=== PATIENT | female | born 1965 | race African-American/Black ===

== ENCOUNTER 2017-01-19 09:13 | Emergency (ER) | payer MEDICARE, OTHER ==
[~2017-01-19] VITALS: Ht 175.3 cm; Wt 103.0 kg
[~2017-01-19 09:13] MED LIST: DEPRESSION MED PO; ERYT.5%O RIGHT EYE; GLUC1000 PO; LISI40TA PO; RANI150T PO; ROSU20 PO; STOO100C PO; [UNRECOGNIZED DRUG - CODE]
[2017-01-19 09:16] VITALS: BP 170/77; PULSE 68; RESP 24; TEMP 98.6; O2SAT 99
--- NOTE | 2017-01-19 09:24 | PD ---
HPI Chief Complaint: GI Complaint Time Seen by Provider: 09:24 Travel History International Travel<30 days: No Contact w/Intl Traveler<30days: No Traveled to known affect area: No History of Present Illness HPI 51-year-old female came to the emergency room with history of severe abdominal pain. Patient says she had a colonoscopy done yesterday were polyp was resected but everything else was fine. She was fine when she was discharged. said she ate ribs and other [employer] food for her lunch as well as dinner and at 1:45 AM started having severe abdominal pain. She went to [facility] emergency room where they did blood test and CAT scan and eventually the patient was discharged home. However patient comes back because the pain is still there. Patient wears a pain pump from which she gets fentanyl for her chronic pain. Vital signs are stable. Most of the history is obtained by the since patient just lays and is writhing in pain. She points to her entire abdomen when asked the location and says it's 10 out of 10. No known aggravating or relieving factors. Pain is sustained. She has been vomiting as per the . [facility] Past Medical History Narrative Medical List of her past medical, surgical, social and family history as reviewed from the nursing note. Arthritis: Yes Asthma: Yes Anxiety: Yes Depression: Yes High Cholesterol: Yes Diabetes: Yes Diminished Hearing: No Headaches: Yes Hypertension: Yes Musculoskeletal: Yes (SEVERAL ORTHO SURGERIES SINCE 1983 FROM A HEAD ON COLLISION) Immunizations Current: Yes Menopausal: No : 2 Para: 2 Miscarriage: 0 : 0 Past Surgical History Body Medical Devices: IMPLANTED DILAIDID PUMP Section: Yes (X2) Other Surgery: Yes (RT KNEE MENISCUS SURGERY NOV 2006/DILAUDID PUMP INSERTION) Social History Alcohol Use: No Tobacco Use: No Substance Use: No Allergies-Medications (Allergen,Severity, Reaction): Coded Allergies: adhesive (Unverified Allergy, Severe, BLISTERS, 01/19/17) baclofen (Unverified Allergy, Severe, HIVES, 01/19/17) bupropion (Unverified Allergy, Severe, HIVES, 01/19/17) cat dander (Unverified Allergy, Severe, 01/19/17) diatrizoate meglumine (Unverified Allergy, Severe, 01/19/17) dog dander (Unverified Allergy, Severe, 01/19/17) gadobenic acid (Unverified Allergy, Severe, 01/19/17) gadodiamide (Unverified Allergy, Severe, 01/19/17) gadoteridol (Unverified Allergy, Severe, 01/19/17) iodixanol (Unverified Allergy, Severe, 01/19/17) iohexol (Unverified Allergy, Severe, 01/19/17) latex (Unverified Allergy, Severe, RASH, YEAST INFECTION, 01/19/17) morphine (Unverified Allergy, Severe, HIVES, 01/19/17) codeine (Unverified Allergy, Intermediate, Hives, 01/19/17) hydromorphone (Unverified Adverse Reaction, Severe, DIARRHEA, NAUSEA, VOMITING, 01/19/17) tramadol (Unverified Adverse Reaction, Severe, AMS, 01/19/17) Uncoded Allergies: DYE (Adverse Reaction, Severe, YEAST INFECTION, 07/30/11) Comments List of her allergies reviewed from the nursing note. Reported Meds & Prescriptions Reported Meds & Active Scripts Active Zofran Odt (Ondansetron Odt) 4 Mg Tab 4 Mg SL Q6HR PRN Reported Rosuvastatin (Rosuvastatin Calcium) 20 Mg Tab 20 Mg PO DAILY Metformin (Metformin HCl) 1,000 Mg Tab 1,000 Mg PO BIDPC With meals Lisinopril 40 Mg Tab 40 Mg PO DAILY Docusate Sodium 100 Mg Cap 100 Mg PO TID Fentanyl 1,000 Mcg/20 ml Vial (Fentanyl Citrate/Pf) 50 Mcg/Ml Vial 324.9 Mcg SQ DAILY [Depression Med] 1 Tab PO DAILY Narrative Medication List of her home medications reviewed from the nursing note. Review of Systems Except as stated in HPI: all other systems reviewed are Neg Physical Exam Narrative GENERAL: Awake, alert, obese, significant distress SKIN: Focused skin assessment warm/dry. HEAD: Atraumatic. Normocephalic. EYES: Pupils equal and round. No scleral icterus. No injection or drainage. ENT: No nasal bleeding or discharge. Mucous membranes pink and moist. NECK: Trachea midline. No JVD. CARDIOVASCULAR: Regular rate and rhythm. No murmur appreciated. RESPIRATORY: No accessory muscle use. Clear to auscultation. Breath sounds equal bilaterally. GASTROINTESTINAL: Abdomen is tense and voluntary guarding, bowel sounds present. Hepatic and splenic margins not palpable. MUSCULOSKELETAL: No obvious deformities. No clubbing. No cyanosis. No edema. NEUROLOGICAL: Awake and alert. No obvious cranial nerve deficits. Motor grossly within normal limits. Normal speech. PSYCHIATRIC: Appropriate mood and affect; insight and judgment normal. Data Data Last Documented VS Vital Signs Date Time Temp Pulse Resp B/P (MAP) Pulse Ox O2 Delivery O2 Flow Rate FiO2 01/19/17 12:50 01/19/17 09:56 96 Room Air 01/19/17 09:16 98.6 68 24 Orders Orders Complete Blood Count With Diff (01/19/17 09:33) Comprehensive Metabolic Panel (01/19/17 09:33) Iv Access Insert/Monitor (01/19/17 09:33) Ecg Monitoring (01/19/17 09:33) Oximetry (01/19/17 09:33) Abdomen, Upright Only (01/19/17 09:33) Ondansetron Inj (Zofran Inj) (01/19/17 09:45) Ketorolac Inj (Toradol Inj) (01/19/17 10:45) Labs Laboratory Tests Test 01/19/17 09:45 White Blood Count 10.1 TH/MM3 Red Blood Count 5.19 MIL/MM3 Hemoglobin 14.6 GM/DL Hematocrit 45.6 % Mean Corpuscular Volume 87.8 FL Mean Corpuscular Hemoglobin 28.1 PG Mean Corpuscular Hemoglobin Concent 32.0 % Red Cell Distribution Width 13.7 % Platelet Count 234 TH/MM3 Mean Platelet Volume 10.0 FL Neutrophils (%) (Auto) 86.5 % Lymphocytes (%) (Auto) 10.7 % Monocytes (%) (Auto) 2.6 % Eosinophils (%) (Auto) 0.0 % Basophils (%) (Auto) 0.2 % Neutrophils # (Auto) 8.7 TH/MM3 Lymphocytes # (Auto) 1.1 TH/MM3 Monocytes # (Auto) 0.3 TH/MM3 Eosinophils # (Auto) 0.0 TH/MM3 Basophils # (Auto) 0.0 TH/MM3 CBC Comment DIFF FINAL Differential Comment Blood Urea Nitrogen 8 MG/DL Creatinine 0.83 MG/DL Random Glucose 162 MG/DL Total Protein 8.0 GM/DL Albumin 3.9 GM/DL Calcium Level 9.2 MG/DL Alkaline Phosphatase 82 U/L Aspartate Amino Transf (AST/SGOT) 20 U/L Alanine Aminotransferase (ALT/SGPT) 43 U/L Total Bilirubin 0.8 MG/DL Sodium Level 142 MEQ/L Potassium Level 3.4 MEQ/L Chloride Level 110 MEQ/L Carbon Dioxide Level 20.9 MEQ/L Anion Gap 11 MEQ/L Estimat Glomerular Filtration Rate 87 ML/MIN MDM Medical Decision Making Medical Screen Exam Complete: Yes Emergency Medical Condition: Yes Medical Record Reviewed: Yes Differential Diagnosis Chronic abdominal pain, perforation Narrative Course 11:28 AM upright chest x-ray was negative for free air. Blood test results of back and within acceptable limits. [facility] was called and asked to fax the report of the CAT scan and blood test that was done earlier from the emergency room but I have not received those faxes yet. I discussed the case with on-call GI specialist Dr. Davila and as per him if tests are negative he does not have any further input however he was notified about the case nonetheless given the fact that patient came in less than 24 hours after post procedure. At this point I'm comfortable discharging her home. She was given IM Zofran and Toradol. Procedures EKG Prior to Arrival: No Diagnosis Primary Impression: Abdominal pain Qualified Codes: R10.84 - Generalized abdominal pain Additional Impression: Status post colonoscopy with polypectomy Referrals: Eden Rey MD Additional Instructions: Please return to the ER if the condition worsens. Please follow-up with your GI specialist. Take clear liquid diet for the next 24-48 hours Med/Other Pt SpecificInfo: Prescription(s) given, No Change to Meds Scripts Ondansetron Odt (Zofran Odt) 4 Mg Tab 4 MG SL Q6HR Y for Nausea/Vomiting, #20 TAB 0 Refills Prov: Halima Polk MD 01/19/17 Disposition: 01 DISCHARGE HOME Condition: Stable Halima Polk MD Jan 19, 2017 09:24
[2017-01-19] MEDS ORDERED: FENT50VI SQ (09:30)
[2017-01-19] MEDS ORDERED: METF1000 PO (09:32)
[2017-01-19] MEDS ORDERED: ROSU1TAB8 PO (09:32)
[2017-01-19] MEDS ORDERED: DOCU100C PO (09:32)
[2017-01-19] MEDS ORDERED: LISI40TA PO (09:32)
[2017-01-19] MEDS ORDERED: ONDANSETRON HCL 4 MG/2 ML VIAL IM ONE (09:45)
[2017-01-19 09:56] VITALS: O2SAT 96
[2017-01-19 10:15] LABS: AUTOMATED NEUTROPHIL # 8.7 TH/MM3 (1.8-7.7); BASOPHIL % 0.2 % (0.0-2.0); HEMATOCRIT 45.6 % (35.0-46.0); HEMO FLAGS DIFF FINAL; LYMPH % 10.7 % (9.0-44.0); LYMPHOCYTE # 1.1 TH/MM3 (1.0-4.8); MEAN CELL VOLUME 87.8 FL (80.0-100.0); MEAN CORPUSCULAR HEMOGLOBIN 28.1 PG (27.0-34.0); MONO % 2.6 % (0.0-8.0); NEUT % 86.5 % (16.0-70.0); PLATELET COUNT 234 TH/MM3 (150-450); RED BLOOD COUNT 5.19 MIL/MM3 (4.00-5.30); RED CELL DISTRIBUTION WIDTH 13.7 % (11.6-17.2); WHITE BLOOD COUNT 10.1 TH/MM3 (4.0-11.0)
--- NOTE | 2017-01-19 10:30 | RADRPT ---
EXAM DATE/TIME: 01/19/2017 10:23 [facility] COMPARISON: No previous studies available for comparison. INDICATIONS : Post colonoscopy yesterday, severe upper abdomen pains with vomiting. MEDICAL HISTORY : Hypertension. SURGICAL HISTORY : Colonoscopy ENCOUNTER: Initial ACUITY: 2 days PAIN SCORE: 10/10 LOCATION: Bilateral upper abdomen. FINDINGS: Single upright abdomen demonstrates a normal-appearing bowel gas pattern. The lung bases are clear. T he visualized bony structures are grossly intact. CONCLUSION: 1. No free intraperitoneal air identified. Delvin Lujan MD on January 19, 2017 at 10:28 Board Certified Radiologist. This report was verified electronically.
[2017-01-19 10:44] LABS: ALT (GPT) 43 U/L (10-53); ANION GAP 11 MEQ/L (5-15); AST (GOT) 20 U/L (15-37); BICARBONATE 20.9 MEQ/L (21.0-32.0); BLOOD UREA NITROGEN 8 MG/DL (7-18); CHLORIDE 110 MEQ/L (98-107); GLOMERULAR FILTRATION RATE 87 ML/MIN (>89); POTASSIUM 3.4 MEQ/L (3.5-5.1); SODIUM (NA) 142 MEQ/L (136-145)
[2017-01-19] MEDS ORDERED: KETOROLAC TROMETHAMINE 60 MG/2 ML (IM) VIAL IM ONE (10:45)
[2017-01-19 10:46] LABS: ALKALINE PHOSPHATASE 82 U/L (45-117); TOTAL BILIRUBIN ADULT 0.8 MG/DL (0.2-1.0)
--- NOTE | 2017-01-19 10:54 | PD.CONS ---
HPI History of Present Illness This is a 51 year old female who presented to the emergency room for evaluation of nausea/vomiting and abdominal pain. She has a family history of colon cancer in son at age 30 and underwent screening colonoscopy (01/18/17) sessile polyp ranging between 3-5 mm in size was found in the sigmoid colon, biopsy was performed using cold forceps, retroflex views revealed internal grade 2 hemorrhoids, digital rectal exam was performed and revealed medium external hemorrhoids. Pathology pending. She was feeling well after the procedure, but was suddenly awakened around 3am with severe epigastric pain, described as a constant dull ache. Shortly after, she started having chills, nausea, vomiting , with green bilious material. She denies any heartburn or reflux. She has not had a fever. She reports that she has frequent belching. She reports that she has not had a bowel movement since her procedure. She is bloated, but states she is not passing flatus. She also complains of numbness in bilateral arms and legs. (Shannon Alfredo) PFSH Past Medical History Adjustment disorder with depressed mood Arthritis Asthma Diabetes type 2 GERD Hypertension Hyperlipidemia History of gastritis and esophagitis Migraine headaches Past Surgical History Arthrodesis cervical Colonoscopy EGD Lumbar laminectomy Pain pump placement Repair of knee ligament Skin debridement left knee (Shannon Alfredo) Coded Allergies: adhesive (Unverified Allergy, Severe, BLISTERS, 01/19/17) baclofen (Unverified Allergy, Severe, HIVES, 01/19/17) bupropion (Unverified Allergy, Severe, HIVES, 01/19/17) cat dander (Unverified Allergy, Severe, 01/19/17) diatrizoate meglumine (Unverified Allergy, Severe, 01/19/17) dog dander (Unverified Allergy, Severe, 01/19/17) gadobenic acid (Unverified Allergy, Severe, 01/19/17) gadodiamide (Unverified Allergy, Severe, 01/19/17) gadoteridol (Unverified Allergy, Severe, 01/19/17) iodixanol (Unverified Allergy, Severe, 01/19/17) iohexol (Unverified Allergy, Severe, 01/19/17) latex (Unverified Allergy, Severe, RASH, YEAST INFECTION, 01/19/17) morphine (Unverified Allergy, Severe, HIVES, 01/19/17) codeine (Unverified Allergy, Intermediate, Hives, 01/19/17) hydromorphone (Unverified Adverse Reaction, Severe, DIARRHEA, NAUSEA, VOMITING, 01/19/17) tramadol (Unverified Adverse Reaction, Severe, AMS, 01/19/17) Uncoded Allergies: DYE (Adverse Reaction, Severe, YEAST INFECTION, 07/30/11) Medications Allergies Coded Allergies Type Severity Reaction Last Updated Verified adhesive Allergy Severe BLISTERS 01/19/17 No baclofen Allergy Severe HIVES 01/19/17 No bupropion Allergy Severe HIVES 01/19/17 No cat dander Allergy Severe 01/19/17 No diatrizoate meglumine Allergy Severe 01/19/17 No dog dander Allergy Severe 01/19/17 No gadobenic acid Allergy Severe 01/19/17 No gadodiamide Allergy Severe 01/19/17 No gadoteridol Allergy Severe 01/19/17 No iodixanol Allergy Severe 01/19/17 No iohexol Allergy Severe 01/19/17 No latex Allergy Severe RASH, YEAST INFECTION 01/19/17 No morphine Allergy Severe HIVES 01/19/17 No codeine Allergy Intermediate Hives 01/19/17 No hydromorphone Adverse Reaction Severe DIARRHEA, NAUSEA, VOMITING 01/19/17 No tramadol Adverse Reaction Severe AMS 01/19/17 No Uncoded Allergies Type Severity Reaction Last Updated Verified DYE Adverse Reaction Severe YEAST INFECTION 07/30/11 Active Scripts Medications Dose Route/Sig Max Daily Dose Days Date Category Dose Instructions Rosuvastatin (Rosuvastatin Calcium) 20 Mg Tab 20 Mg PO DAILY 01/19/17 Reported Metformin (Metformin HCl) 1,000 Mg Tab 1,000 Mg PO BIDPC 01/19/17 Reported With meals Lisinopril 40 Mg Tab 40 Mg PO DAILY 01/19/17 Reported Docusate Sodium 100 Mg Cap 100 Mg PO TID 01/19/17 Reported Fentanyl 1,000 Mcg/20 ml Vial (Fentanyl Citrate/Pf) 50 Mcg/Ml Vial 324.9 Mcg SQ DAILY 01/19/17 Reported [Depression Med] 1 Tab PO DAILY 07/30/11 Reported Family History Family hx of pancreatic cancer Family hx of colon cancer, son age 30 Family hx of bladder cancer Family hx of lung cancer Family hx of throat cancer Social History No etoh No tobacco No illicit drug use (Shannon AlfredoP) Review of Systems Constitutional: COMPLAINS OF: Fatigue, Chills, DENIES: Fever Respiratory: DENIES: Cough Cardiovascular: DENIES: Chest pain Gastrointestinal: COMPLAINS OF: Abdominal pain, Nausea, Vomiting, Swelling of Abdomen, DENIES: Black stools, Bloody stools, Constipation, Diarrhea, Heartburn Musculoskeletal: COMPLAINS OF: Joint pain, Back pain Neurologic: COMPLAINS OF: Paresthesias, DENIES: Abnormal gait Psychiatric: DENIES: Confusion (Shannon Alfredo ARNULFO) GI Exam Vitals I&O Vital Signs Date Time Temp Pulse Resp B/P (MAP) Pulse Ox O2 Delivery O2 Flow Rate FiO2 01/19/17 09:56 96 Room Air 01/19/17 09:16 98.6 68 24 170/77 (108) 99 Room Air Imaging Last Impressions Abdomen X-Ray 01/19/17 0933 Signed Impressions: Service Date/Time: Tuesday, January 19, 2017 10:23 - CONCLUSION: 1. No free intraperitoneal air identified. Delvin Lujan MD Laboratory Test 01/19/17 09:45 White Blood Count 10.1 TH/MM3 Red Blood Count 5.19 MIL/MM3 Hemoglobin 14.6 GM/DL Hematocrit 45.6 % Mean Corpuscular Volume 87.8 FL Mean Corpuscular Hemoglobin 28.1 PG Mean Corpuscular Hemoglobin Concent 32.0 % Red Cell Distribution Width 13.7 % Platelet Count 234 TH/MM3 Mean Platelet Volume 10.0 FL Neutrophils (%) (Auto) 86.5 % Lymphocytes (%) (Auto) 10.7 % Monocytes (%) (Auto) 2.6 % Eosinophils (%) (Auto) 0.0 % Basophils (%) (Auto) 0.2 % Neutrophils # (Auto) 8.7 TH/MM3 Lymphocytes # (Auto) 1.1 TH/MM3 Monocytes # (Auto) 0.3 TH/MM3 Eosinophils # (Auto) 0.0 TH/MM3 Basophils # (Auto) 0.0 TH/MM3 CBC Comment DIFF FINAL Differential Comment Blood Urea Nitrogen 8 MG/DL Creatinine 0.83 MG/DL Random Glucose 162 MG/DL Total Protein 8.0 GM/DL Albumin 3.9 GM/DL Calcium Level 9.2 MG/DL Alkaline Phosphatase 82 U/L Aspartate Amino Transf (AST/SGOT) 20 U/L Alanine Aminotransferase (ALT/SGPT) 43 U/L Total Bilirubin 0.8 MG/DL Sodium Level 142 MEQ/L Potassium Level 3.4 MEQ/L Chloride Level 110 MEQ/L Carbon Dioxide Level 20.9 MEQ/L Anion Gap 11 MEQ/L Estimat Glomerular Filtration Rate 87 ML/MIN Physical Examination HEENT: Normocephalic; atraumatic; no jaundice. CHEST: CTA CARDIAC: RRR ABDOMEN: Soft, nondistended, mild diffuse tenderness; no hepatosplenomegaly; bowel sounds are present in all four quadrants. EXTREMITIES: No clubbing, cyanosis, or edema. SKIN: Normal; no rash; no jaundice. RN LABOR DELIVERY: No focal deficits; alert and oriented times three. (Shannon Alfredo) Assessment and Plan Plan ASSESSMENT: - Abdominal pain with n/v. S/P screening colonoscopy (01/18/17)---> sessile polyp ranging between 3-5 mm in size was found in the sigmoid colon, biopsy was performed using cold forceps, retroflex views revealed internal grade 2 hemorrhoids, digital rectal exam was performed and revealed medium external hemorrhoids. Pathology pending. She was feeling well after the procedure, but was suddenly awakened around 3am with severe epigastric pain, described as a constant dull ache and then developed nausea/vomiting with green bilious material. She was seen at [facility], where she was evaluated with CT scan and labs, and d/c'd home. She returns with abdominal pain, n/ v. KUB unremarkable. WBC unremarkable. She has a hx of chronic back pain and is on a fentanyl pain pump. Unclear etiology, possible musculoskeletal? Will add PPI, Zofran prn. Further recommendations to follow based on results of above. - GERD. Add ppi - Chronic back pain. Has fentanyl pain pump - Asthma, DM, HTN, Hyperlipidemia, Migraines per attending. PLAN: - Clear liquids - Add PPI - Add Zofran prn - Consider back xrays - Supportive care - Further recommendations to follow based on results of above - Pt seen and examined by Dr. Davila and myself and this note is written on his behalf (Shannon Alfredo) Physician Comments Patient seen and examined Agree with above Continue with current supportive care Monitor labs Consider back x-rays Most likely etiology at this point is musculoskeletal pain (Jose Antonio Davila MD) Shannon Alfredo Jan 19, 2017 10:54 Jose Antonio Davila MD Jan 19, 2017 13:56
[2017-01-19] MEDS ORDERED: ZOFR4TAB3 SL (11:23)
== END 2017-01-19 12:52 | disposition home or self-care (01) ==
LOC: NEPC 09:13
DX: R10.84 Generalized abdominal pain (principal); K64.1 Second degree hemorrhoids; K64.4 Residual hemorrhoidal skin tags; K21.9 Gastro-esophageal reflux disease without esophagitis; G89.29 Other chronic pain; M54.9 Dorsalgia, unspecified; E78.5 Hyperlipidemia, unspecified; E11.9 Type 2 diabetes mellitus without complications; I10 Essential (primary) hypertension; Z79.84 Long term (current) use of oral hypoglycemic drugs
CPT/HCPCS: 74000; 80053; 85025; 96372; 99284; J1885; J2405